=== PATIENT | female | born 1950 | race Caucasian/White ===

== ENCOUNTER 2017-11-15 07:24 | Day surgery (SDC) | payer MEDICARE, OTHER ==
[~2017-11-15 07:24] MED LIST: Lactated Ringers 1,000 ML IV SCH; Lidocaine 1%/Sod Bicarbonate in NS 8.4% 1 ML Syringe IDERM PRN; Sodium Chloride 0.9% 10 ML Syringe FLUSH PRN
[2017-11-15] MEDS ORDERED: Propofol 200 MG/20 ML SDV ONE (09:07)
[2017-11-15] MEDS ORDERED: Lidocaine 1% 4 ML ONE (09:07)
[2017-11-15] MEDS ORDERED: fentaNYL 100 MCG/2 ML SDV ONE (09:08)
--- NOTE | 2017-11-15 09:40 | PCM.PREANE ---
Preanesthetic Assessment - Anesthesia/Transfusion/Family Hx Anesthesia History: Prior Anesthesia Without Reaction Family History of Anesthesia Reaction: No - Review of Systems General: No Symptoms Pulmonary: No Symptoms Cardiovascular: Other (DVT to right leg. In varicose vein per patient's daughter. Leg is not sore at this time. ) Gastrointestinal: No Symptoms Neurological: No Symptoms Other: Reports: None - Physical Assessment NPO Status Date: 11/14/17 NPO Status Time: 23:50 O2 Sat by Pulse Oximetry: 94 Respiratory Rate: 16 Vital Signs: Last Vital Signs Temp 37.2 C 11/15/17 07:30 Pulse 74 11/15/17 07:30 Resp 16 11/15/17 07:30 BP 142/93 H 11/15/17 07:30 Pulse Ox 94 L 11/15/17 07:30 Height: 1.6 m Weight: 111.13 kg ASA Class: 2 Mental Status: Alert & Oriented x3 Airway Class: Mallampati = 2 Dentition: Reports: Dentures (Upper and lower) Thyro-Mental Finger Breadths: 3 Mouth Opening Finger Breadths: 3 ROM/Head Extension: Full Lungs: Clear to Auscultation, Normal Respiratory Effort, Decreased Breath Sounds Cardiovascular: Regular Rate, Regular Rhythm - Allergies Allergies/Adverse Reactions: Allergies Allergy/AdvReac Type Severity Reaction Status Date / Time nickel Allergy Itching Verified 11/14/17 08:11 - Acknowledgements Anesthesia Type Planned: MAC Pt an Appropriate Candidate for the Planned Anesthesia: Yes Alternatives and Risks of Anesthesia Discussed w Pt/Guardian: Yes Pt/Guardian Understands and Agrees with Anesthesia Plan: Yes PreAnesthesia Questionnaire HEENT History: Reports: None Cardiovascular History: Reports: Hypertension Respiratory History: Reports: None Other Respiratory History: Snores but r/o'ed AMANUEL Gastrointestinal History: Reports: None Genitourinary History: Reports: None Other Genitourinary History: blood in urine [employer] History: Reports: None Musculoskeletal History: Reports: None Neurological History: Reports: Other (See Below) Other Neuro History: Tremors Psychiatric History: Reports: Depression Endocrine/Metabolic History: Reports: Obesity/BMI 30+ Hematologic History: Reports: None Immunologic History: Reports: None Oncologic (Cancer) History: Reports: None Dermatologic History: Reports: None - Infectious Disease History Infectious Disease History: Reports: None - Past Surgical History Head Surgeries/Procedures: Reports: None HEENT Surgical History: Reports: None Cardiovascular Surgical History: Reports: None Respiratory Surgical History: Reports: None GI Surgical History: Reports: Colonoscopy Female Surgical History: Reports: None Endocrine Surgical History: Reports: None Neurological Surgical History: Reports: None Dermatological Surgical History: Reports: None - SUBSTANCE USE Smoking Status *Q: Never Smoker Second Hand Smoke Exposure: No Recreational Drug Use History: No - HOME MEDS Home Medications: Home Meds Enalapril [Vasotec] 10 mg PO DAILY 03/11/15 [History] Hydrochlorothiazide 25 mg PO DAILY 03/11/15 [History] Metoprolol Succinate [Toprol XL] 200 mg PO DAILY 03/11/15 [History] Cyanocobalamin (Vitamin B12) [Vitamin B12] 1,000 mcg PO DAILY 11/14/17 [History] Primidone 50 mg PO BID 11/14/17 [History] - CURRENT (IN HOUSE) MEDS Current Meds: Current Medications Lactated Ringer's (Ringers, Lactated) 1,000 mls @ 125 mls/hr IV ASDIRECTED TAMIKO Stop: 11/15/17 18:00 Last Admin: 11/15/17 08:00 Dose: 125 mls/hr Lidocaine/Sodium Bicarbonate (Buffered Lidocaine 1% In Ns 8.4%) 0.25 ml IDERM ONETIME PRN PRN Reason: Prior to IV Start Stop: 11/15/17 18:00 Sodium Chloride (Saline Flush) 10 ml FLUSH ASDIRECTED PRN PRN Reason: Keep Vein Open Stop: 11/15/17 18:00 Discontinued Medications Fentanyl (Sublimaze) Confirm Administered Dose 100 mcg .ROUTE .STK-MED ONE Stop: 11/15/17 09:09 Lidocaine HCl (Xylocaine-Mpf 1%) Confirm Administered Dose 4 mls @ as directed .ROUTE .STK-MED ONE Stop: 11/15/17 09:08 Propofol (Diprivan 20 Ml) Confirm Administered Dose 200 mg .ROUTE .STK-MED ONE Stop: 11/15/17 09:08
--- NOTE | 2017-11-15 10:07 | PCM.OPNOTE ---
- General Post-Op/Procedure Note Date of Surgery/Procedure: 11/15/17 Operative Procedure(s): colonoscopy with polypectomy times 2 Pre Op Diagnosis: survaillance with hx of colonic polyps Post-Op Diagnosis: Same Anesthesia Technique: MAC Primary Surgeon: Ashkan Pavon EBL in mLs: 0 Complications: None Condition: Good
--- NOTE | 2017-11-15 10:13 | PCM48HPAN ---
Post Anesthesia Note - EVALUATION WITHIN 48HRS OF ANESTHETIC Vital Signs in Normal Range: Yes Patient Participated in Evaluation: Yes Respiratory Function Stable: Yes Airway Patent: Yes Cardiovascular Function Stable: Yes Hydration Status Stable: Yes Pain Control Satisfactory: Yes Nausea and Vomiting Control Satisfactory: Yes Mental Status Recovered: Yes Pulse Rate: 73 SaO2: 93 Resp Rate: 20 Temperature: 98.1 F Blood Pressure: 140/78
[2017-11-15 11:00] VITALS: BP 146/84
--- NOTE | 2017-11-15 11:03 | OR ---
DATE OF OPERATION: 11/15/2017 SURGEON: Ashkan Pavon MD PREOPERATIVE DIAGNOSIS: Surveillance colonoscopy. POSTOPERATIVE DIAGNOSIS: Surveillance colonoscopy. OPERATION PERFORMED: Colonoscopy with polypectomy x2, diminutive polyp removed by cold biopsy forceps, completely retrieved from the ascending colon and transverse colon. There is a diminutive polyp removed by guillotine technique with a snare, it was completely removed, but not retrieved. There were no angiodysplasias, large tumor masses, ulcerations, diverticulum, or notable hemorrhoids. DESCRIPTION OF PROCEDURE: The patient was taken to the endoscopy room, placed in a supine position, connected to monitoring equipment, given IV sedation. The patient was placed in left lateral position. Perianal area was inspected, it was normal rectal exam, showed good sphincter tone. A video Olympus colonoscope was then introduced into the rectum and threaded up without problem to the cecum, where the ileocecal valve was noted. Prep was excellent, [place] Cle[employer] score grade A and the scope was slowly withdrawn showing the cecum, ascending colon, transverse colon, descending colon, sigmoid colon, and rectum. Retroflexed view was done. Diminutive polyp in ascending colon was removed completely by cold biopsy forceps and sent to pathology in a labeled container. Another diminutive polyp in the transverse colon was removed completely by cold guillotine technique with a snare without cautery but was not retrieved. The patient tolerated the procedure, sent to recovery room in a stable condition, will be followed up in the clinic. ANESTHESIA: ESTIMATED BLOOD LOSS: MMODAL /[id number]
== END 2017-11-15 11:04 | disposition home or self-care (01) ==
LOC: JD.SDS 07:24
PROVIDERS: ATTEND Surgery
DX: Z12.11 Encounter for screening for malignant neoplasm of colon (principal); D12.2 Benign neoplasm of ascending colon; K63.5 Polyp of colon; I10 Essential (primary) hypertension; E66.9 Obesity, unspecified; Z68.41 Body mass index [BMI] 40.0-44.9, adult; F32.9 Major depressive disorder, single episode, unspecified; I82.401 Acute embolism and thrombosis of unspecified deep veins of right lower extremity; Z86.010 Personal history of colon polyps; Z79.899 Other long term (current) drug therapy; Z91.048 Other nonmedicinal substance allergy status
CPT/HCPCS: 45380; 45385; J2001; J3010; J7120; 00811; 88305; J2704